=== PATIENT | male | born 1955 | race Caucasian/White ===

== ENCOUNTER → 2020-07-08 | Day surgery (SDC) | payer OTHER ==
[~2020-07-08] MED LIST: ALLEGRA ALLERG180 MG PO; FLONASE ALLER15.8 ML; OMEPRAZOLE40 MG PO; OSTEO BI-FLEX1 EAC1 PO; TRELEGY ELLIPT1 EAC1 INH
[2020-07-08 09:56] LABS: HCT 43.7 % (42.0-52.0); HGB 14.6 g/dl (13.2-18.0); MCH 29.3 pg (25.0-31.0); MCHC 33.4 g/dL (32.0-36.0); MCV 87.8 fL (78.0-100.0); MPV 9.3 fL (6.0-9.5); RBC 4.98 M/uL (4.70-6.00); RDW 12.9 % (11.5-14.0); WBC 5.4 K/uL (4.0-10.5)
[2020-07-08 10:19] LABS: ALBUMIN 4.1 g/dL (3.4-5.0); BILIRUBIN - TOTAL 0.8 mg/dL (0.2-1.0); BUN/CREAT RATIO (CALC) 11.4 RATIO; CREATININE 1.05 mg/dL (0.67-1.17); POTASSIUM 4.1 mmol/L (3.5-5.1); TOTAL PROTEIN 7.1 g/dL (6.4-8.2)
== END | disposition home or self-care (01) ==
LOC: FAS 09:07
PROVIDERS: Surgery
DX: K22.2 Esophageal obstruction (principal); K21.00 Gastro-esophageal reflux disease with esophagitis, without bleeding; K29.50 Unspecified chronic gastritis without bleeding; J45.909 Unspecified asthma, uncomplicated; J44.9 Chronic obstructive pulmonary disease, unspecified; F17.210 Nicotine dependence, cigarettes, uncomplicated; Z87.19 Personal history of other diseases of the digestive system
CPT/HCPCS: 36415; 80053; C1726; J2250; J2704; J7120

== ENCOUNTER → 2021-11-24 | Day surgery (SDC) | payer OTHER ==
[~2021-11-24] VITALS: Ht 185.4 cm; Wt 111.2 kg
[2021-11-24 10:41] LABS: BILIRUBIN - TOTAL 0.9 mg/dL (0.2-1.0); BUN/CREAT RATIO (CALC) 12.1 RATIO; CREATININE 1.07 mg/dL (0.67-1.17); GLOBULIN (CALCULATION) 2.6 g/dL; TOTAL PROTEIN 6.6 g/dL (6.4-8.2)
[2021-11-24 11:02] LABS: HCT 42.5 % (42.0-52.0); MCH 28.9 pg (25.0-31.0); MCHC 32.9 g/dL (32.0-36.0); MCV 87.8 fL (78.0-100.0); MPV 9.6 fL (6.0-9.5); RBC 4.84 M/uL (4.70-6.00); RDW 13.2 % (11.5-14.0); WBC 5.3 K/uL (4.0-10.5)
== END | disposition home or self-care (01) ==
LOC: FAS 09:11
PROVIDERS: Surgery
DX: K22.2 Esophageal obstruction (principal); K21.9 Gastro-esophageal reflux disease without esophagitis; J44.9 Chronic obstructive pulmonary disease, unspecified; Z86.010 Personal history of colon polyps; Z87.891 Personal history of nicotine dependence
CPT/HCPCS: 36415; 80053; C1726; J2250; J2704; J7120